=== PATIENT | female | born 1965 | race African-American/Black ===

== ENCOUNTER 2016-12-02 09:19 | Emergency (ER) | payer BC ==
[2016-12-02 09:24] VITALS: BP 150/74; PULSE 83; TEMP 98.1; BMI 35.5
--- NOTE | 2016-12-02 11:09 | PDOC ---
History of Present Illness - General Chief Complaint: Pain, Acute Stated Complaint: RT KNEE PAIN Time Seen by Provider: 12/02/16 09:55 History Source: Patient Exam Limitations: No Limitations - History of Present Illness Initial Comments: 12/02/16 11:04 CC RIGHT KNEE PAIN POST HEARING POP TODAY Occurred: reports: just prior to arrival Severity: reports: moderate Pain Location: reports: lower extremity Method of Injury: Yes: other (NO TRAUMA) Past History - Past Medical History Allergies/Adverse Reactions: Allergies Allergy/AdvReac Type Severity Reaction Status Date / Time No Known Allergies Allergy Verified 12/02/16 09:21 Home Medications: Ambulatory Orders Amlodipine Besylate [Norvasc -] 5 mg PO DAILY 06/08/15 HTN: Yes Suicide Attempt (Hx): No - Family Disease History Family Disease History: Heart Disease: Mother ( age 62 unknown cardiac condition) - Immunization History Immunization Up to Date: Yes - Psycho/Social/Smoking Cessation Hx Anxiety: No Suicidal Ideation: No Smoking Status: No Smoking History: Never smoked Have you smoked in the past 12 months: No Information on smoking cessation initiated: No Hx Alcohol Use: No Drug/Substance Use Hx: No Substance Use Type: None Review of Systems - Review of Systems Constitutional: No: Chills, Fever, Malaise HEENTM: No: Symptoms Reported Respiratory: No: Symptoms reported : No: Symptoms Reported Musculoskeletal: Yes: Joint Pain, Joint Swelling Integumentary: No: Symptoms Reported, Bruising, Change in Hair/Nails, Erythema Neurological: No: Symptoms reported *Physical Exam - Vital Signs Last Vital Signs Temp Pulse Resp BP Pulse Ox 98.1 F 83 20 150/74 97 12/02/16 09:22 12/02/16 09:22 12/02/16 09:22 12/02/16 09:22 12/02/16 09:22 - Physical Exam General Appearance: Yes: Appropriately Dressed. No: Apparent Distress HEENT: positive: TMs Normal, Pharynx Normal Neck: positive: Supple. negative: Rigid Respiratory/Chest: positive: Lungs Clear. negative: Accessory Muscle Use Musculoskeletal: positive: Other (MILD TENDERNESS POSTERIOR KNEE, NO STS; NO JOINT LAXITY; FROM; AMULATES WITH LIMP) ED Treatment Course - RADIOLOGY Radiology Studies Ordered: Category Date Time Status KNEE 3 POS-RIGHT [RAD] Stat Radiology 12/02/16 10:12 Completed Medical Decision Making - Medical Decision Making 12/02/16 11:07 SPOKE WITH PT REGARDING PROBALE NEED OF MRI; REFERRED TO DR CARRASCO; IMMOBILIZER APPLIED, CANE GIVEN *DC/Admit/Observation/Transfer Diagnosis at time of Disposition: Injury of right knee Qualifiers: Encounter type: initial encounter Qualified Code(s): S89.91XA - Unspecified injury of right lower leg, initial encounter - Discharge Dispostion Disposition: HOME Condition at time of disposition: Stable Admit: No - Referrals Referrals: Gisela Martinez MD [Primary Care Provider] - Parish Carrasco MD [Staff Physician] - - Post Discharge Activity Work/School Note: Back to Work
== END 2016-12-02 11:20 | disposition home or self-care (01) ==
LOC: JERFT 09:19
PROC: 2W3LX1Z Immobilization of Right Lower Extremity using Splint (ICD-10-PCS; principal; 2016-12-02)
DX: S89.81XA Other specified injuries of right lower leg, initial encounter (principal); X58.XXXA Exposure to other specified factors, initial encounter; Y93.01 Activity, walking, marching and hiking; Y92.89 Other specified places as the place of occurrence of the external cause; Y99.8 Other external cause status
CPT/HCPCS: 73562-TC-RT; 99281-25

== ENCOUNTER 2019-05-11 10:29 | Emergency (ER) | payer BC ==
[2019-05-11 10:40] VITALS: BP 125/80; PULSE 63; TEMP 98.1; BMI 35.9
--- NOTE | 2019-05-11 10:49 | PDOC ---
History of Present Illness - General Chief Complaint: Pain Stated Complaint: FALL / LT KNEE PAIN Time Seen by Provider: 05/11/19 10:39 - History of Present Illness Initial Comments: 05/11/19 11:42 54 years old with no significant past medical history presents status post fall approximately 1 week ago with injury to left knee. Pain has been progressively worsening now is an 8 out of 10 worse with ambulation no significant swelling Persistent constant no significant alleviating factors Past History - Past Medical History Allergies/Adverse Reactions: Allergies Allergy/AdvReac Type Severity Reaction Status Date / Time No Known Allergies Allergy Verified 12/02/16 09:21 Home Medications: Ambulatory Orders Amlodipine Besylate [Norvasc -] 5 mg PO DAILY 06/08/15 Metoprolol Succinate [Toprol Xl -] 50 mg PO BID 05/11/19 Naproxen 500 mg PO BID 05/11/19 COPD: No HTN: Yes - Family Disease History Family Disease History: Heart Disease: Mother ( age 62 unknown cardiac condition) - Immunization History Immunization Up to Date: Yes - Suicide/Smoking/Psychosocial Hx Smoking Status: No Smoking History: Never smoked Have you smoked in the past 12 months: No Hx Alcohol Use: No Drug/Substance Use Hx: No Substance Use Type: None Review of Systems - Review of Systems Comments:: 05/11/19 11:43 ROS: A complete review of 10 out of 10 review of systems is taken and is negative apart from what is previously mentioned below and in the HPI. *Physical Exam - Vital Signs Last Vital Signs Temp Pulse Resp BP Pulse Ox 98.1 F 63 18 125/80 99 05/11/19 10:38 05/11/19 10:38 05/11/19 10:38 05/11/19 10:38 05/11/19 10:38 - Physical Exam Comments: 05/11/19 11:43 Vitals: Triage Vital signs reviewed General Appearance: no acute distress, well nourished well developed, Head: Atraumatic, Extremities: Full range of motion to all extremities, no cyanosis, clubbing, or edema pain with extension of left knee. Skin: Warm and dry, no rashes or lesions, no rash, no petechiae Neuro: Strength intact to all extremities, Sensation intact to all extremities, Psych: normal mood, normal affect Medical Decision Making - Medical Decision Making No acute fracture dislocation noted patient placed in knee immobilizer will follow up with her orthopedist. Findings, need for follow-up and strict return instructions discussed with patient. *DC/Admit/Observation/Transfer Diagnosis at time of Disposition: Knee sprain Qualifiers: Encounter type: initial encounter Involved ligament of knee: unspecified ligament Laterality: left Qualified Code(s): S83.92XA - Sprain of unspecified site of left knee, initial encounter - Discharge Dispostion Disposition: HOME Condition at time of disposition: Fair Decision to Admit order: No - Referrals Referrals: Gisela Martinez MD [Primary Care Provider] - Parish Carrasco MD [Staff Physician] - - Patient Instructions Printed Discharge Instructions: Knee Sprain Additional Instructions: Wear knee immobilizer at all times while ambulating. Follow-up with your orthopedist within 1 week. Return to ED for any severe worsening symptoms or for any concerns. Ice 20 minutes on 20 minutes off. Continue Motrin as directed on package. - Post Discharge Activity Forms/Work/School Notes: Back to Work
== END 2019-05-11 11:57 | disposition home or self-care (01) ==
LOC: JERFT 10:29
PROC: 2W3RX1Z Immobilization of Left Lower Leg using Splint (ICD-10-PCS; principal; 2019-05-11)
DX: S83.92XA Sprain of unspecified site of left knee, initial encounter (principal); I10 Essential (primary) hypertension; W18.39XA Other fall on same level, initial encounter; Y93.89 Activity, other specified; Y92.89 Other specified places as the place of occurrence of the external cause
CPT/HCPCS: 73562-TC-LT-FY; 99282-25